=== PATIENT | female | born 1965 | race Caucasian/White ===

== ENCOUNTER 2016-08-20 09:04 | Emergency (ER) | payer MEDICAID ==
[2016-08-20] MEDS ORDERED: ASPIRIN 81 MG TABLET, CHEWABLE PO ONE (10:28)
--- NOTE | 2016-08-20 10:28 | ER Document Report ---
ED Cardiac - General Chief Complaint: Chest Pressure Stated Complaint: HEADACHE Mode of Arrival: Medic Information source: Patient Notes: This is a 51-year-old female who presents via EMS for chest pain and headache. She states that she had a tooth extracted yesterday morning. This morning she initially felt fine when she awoke but shortly after taking her prescribed antibiotic, she developed a gradual headache. He then took her dog for a walk at about 08 100 and when she returned home she laid down. She then developed substernal chest pressure and states that it felt like someone was sitting on her chest. This pressure radiated up into the left side of her neck. She also states that her right upper extremity felt tingly. She was nauseated but did not vomit. She states she was very diaphoretic. She had no radiation into her back. She also cannot recall if she felt short of breath at the time. At this point she called EMS. At this time she currently denies any chest pain or pressure, but she does state she still has some residual pressure in her neck and she still has a headache. This headache is similar to her prior headaches. She's had no recent illnesses and no fevers. TRAVEL OUTSIDE OF THE [place] IN LAST 30 DAYS: No - Related Data Allergies/Adverse Reactions: No Known Allergies Allergy (Unverified 03/27/16 13:34) Past Medical History - General Information source: Patient - Social History Smoking Status: Current Every Day Smoker Frequency of alcohol use: None Drug Abuse: None Family History: Other - mother, daughter, grandaughter history of stroke, Mom with [place] in her 60's - Past Medical History Cardiac Medical History: Reports: Other - tachycardia Pulmonary Medical History: Reports: None Neurological Medical History: Reports: Hx Migraine Endocrine Medical History: Reports: None GI Medical History: Reports: Hx Gastroesophageal Reflux Disease Psychiatric Medical History: Denies: Hx Depression Surgical Hx: Negative - Immunizations Hx Diphtheria, Pertussis, Tetanus Vaccination: Yes Review of Systems - Review of Systems Notes: REVIEW OF SYSTEMS: CONSTITUTIONAL : Denies fever, Denies recent illness. EENT: Denies eye, ear, throat, or mouth pain or symptoms. Denies nasal or sinus congestion. CARDIOVASCULAR: As per history of present illness RESPIRATORY: Denies cough, cold, or chest congestion. Denies shortness of breath, difficulty breathing, or wheezing. GASTROINTESTINAL: Denies abdominal pain. Denies vomiting. Nausea as per history of present illness GENITOURINARY: Denies difficulty urinating, painful urination, burning, frequency, or blood in urine. MUSCULOSKELETAL: Denies neck or back pain or joint pain or swelling. SKIN: Denies rash or skin lesions. HEMATOLOGIC : Denies easy bruising or bleeding. LYMPHATIC: Denies swollen, enlarged glands. NEUROLOGICAL: Denies altered mental status or loss of consciousness. Headache as per history of present illness PSYCHIATRIC: Denies anxiety or stress or depression. ALL OTHER SYSTEMS REVIEWED AND NEGATIVE. Physical Exam - Vital signs Vitals: Resp BP Pulse Ox 15 116/69 99 08/20/16 14:00 08/20/16 14:00 08/20/16 14:00 - Notes Notes: PHYSICAL EXAMINATION: GENERAL: Awake and alert, appears uncomfortable, well-nourished and in no acute distress. HEAD: Atraumatic, normocephalic. EYES: Pupils equal round and reactive to light, extraocular movements intact, sclera anicteric, conjunctiva are normal. ENT: nares patent, oropharynx clear without exudates. Moist mucous membranes. NECK: Normal range of motion, supple without lymphadenopathy LUNGS: Breath sounds clear to auscultation bilaterally and equal. No wheezes rales or rhonchi. HEART: Regular rate and rhythm without murmurs ABDOMEN: Soft, nontender, normoactive bowel sounds. No guarding, no rebound. No masses appreciated. EXTREMITIES: Normal range of motion, no pitting or edema. NEUROLOGICAL: Cranial nerves grossly intact. Normal speech. Normal sensory, motor, and reflex exams. PSYCH: Normal mood, normal affect. SKIN: Warm, Dry, normal turgor, no rashes or lesions noted. Course - Re-evaluation Re-evalutation: 08/20/16 11:30 This patient presents with concerning symptoms of chest pressure radiating into her neck. Her initial EKG is nondiagnostic and shows no ischemia. I will treat her with aspirin and we'll also treat her migraine headache. Cardiac enzymes are ordered and I anticipate that she will be admitted for chest pain observation and rule out, should her initial emergency workup be reassuring. 08/20/16 15:59 Patient is resting comfortably and her labs are reviewed. She has no current chest pain. She is agreeable for observation admission for chest pain rule out and stress test. Discussed also with her mother and their questions are answered. 08/20/16 18:13 - Vital Signs Vital signs: Temp Pulse Resp BP Pulse Ox 15 116/69 99 08/20/16 14:00 08/20/16 14:00 08/20/16 14:00 - Laboratory Result Diagrams: 08/20/16 12:15 08/20/16 14:27 Laboratory results interpreted by me: 08/20/16 12:15 WBC 13.3 H Seg Neutrophils % 85.0 H Lymphocytes % 11.3 L Monocytes % 2.9 L Absolute Neutrophils 11.3 H - Diagnostic Test Radiology reviewed: Reports reviewed - Chest x-ray negative - EKG Interpretation by Me Additional EKG results interpreted by me: 08/20/16 16:01 EKG at 0 910 reveals sinus rhythm with a rate of 68. She does have inverted T waves in V1 and V2 as well as flattened T waves in aVL. I see no ST elevation or depression. There are no prior EKGs for comparison. Discharge - Discharge Clinical Impression: Chest pain in adult, Cardiovascular risk factor, Tobacco abuse Condition: Good Disposition: ADMITTED OBSERVATION Admitting Provider: Hospitalist - Dr. Wharton Unit Admitted: Telemetry - Dio
[2016-08-20] MEDS ORDERED: METOCLOPRAMIDE HCL INJ/PF 10 MG/2 ML SDV IV ONE (10:29)
[2016-08-20] MEDS ORDERED: NORMAL SALINE 1000 ML 1,000 ML IV ONE (10:29)
[2016-08-20] MEDS ORDERED: DIPHENHYDRAMINE HCL 50 MG/ML VIAL IV ONE (10:29)
[2016-08-20 12:26] LABS: ABSOLUTE BASOPHILS # (AUTO) 0.1 10^3/uL (0.0-0.2); ABSOLUTE LYMPHOCYTES (AUTO) 1.5 10^3/uL (0.5-4.7); ABSOLUTE MONOCYTES (AUTO) 0.4 10^3/uL (0.1-1.4); ABSOLUTE NEUT (AUTO) 11.3 10^3/uL (1.7-8.2); BASOPHILS % (AUTO) 0.4 % (0-2); EOSINOPHILS % (AUTO) 0.4 % (0-6); HEMATOCRIT 38.1 % (36.0-47.0); HEMOGLOBIN 12.9 g/dL (12.0-15.5); HGB HCT DIFFERENCE 0.6; LYMPHOCYTES % (AUTO) 11.3 % (13-45); MEAN CORPUSCULAR HGB CONC 33.9 g/dL (32.0-36.0); MEAN CORPUSCULAR VOLUME 91 fl (80-97); MONOCYTES % (AUTO) 2.9 % (3-13); RED BLOOD COUNT 4.17 10^6/uL (3.72-5.28); RED CELL DISTRIBUTION WIDTH 12.7 % (11.5-14.0); WHITE BLOOD COUNT 13.3 10^3/uL (4.0-10.5)
--- NOTE | 2016-08-20 13:24 | EKG REPORT ---
SEVERITY:- BORDERLINE ECG - SINUS RHYTHM BORDERLINE T ABNORMALITIES, ANT-LAT LEADS : Confirmed by: Darren Varela MD 20-Aug-2016 13:23:39
[2016-08-20 14:55] LABS: ALANINE AMINOTRANSFERASE 28 U/L (9-52); ALBUMIN 3.7 g/dL (3.5-5.0); ALKALINE PHOSPHATASE 49 U/L (38-126); ANION GAP 9 (5-19); ASPARTATE AMINO TRANSFERASE 23 U/L (14-36); BILIRUBIN,TOTAL 0.6 mg/dL (0.2-1.3); BLOOD UREA NITROGEN 13 mg/dL (7-20); CALCIUM 9.1 mg/dL (8.4-10.2); CARBON DIOXIDE 27 mmol/L (22-30); CHLORIDE 106 mmol/L (98-107); CREATINE KINASE 70 U/L (30-135); CREATININE RESULT 0.71 mg/dL (0.52-1.25); GLUCOSE 85 mg/dL (75-110); POTASSIUM 4.3 mmol/L (3.6-5.0); SODIUM 141.9 mmol/L (137-145); TOTAL PROTEIN 6.7 g/dL (6.3-8.2)
[2016-08-20 15:06] LABS: CREATINE KINASE MB 0.28 ng/mL (<4.55)
[2016-08-20 15:07] LABS: TROPONIN I < 0.012 ng/mL
--- NOTE | 2016-08-20 17:40 | PDOC CONSULTATION ---
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 I was asked by emergency department provider to evaluate patient for chest pain. Patient clearly states that she did not present to the emergency department for chest pain but in fact presented with severe headache. She has history of migraine headaches and these have been increasing in frequency and intensity to the point that she is becoming debilitated missing work. She has never seen a neurologist for this. She was admitted to the hospitalist service in March of last year for complex migraine and had neuroimaging that was unremarkable at that time. She was discharged on Zoloft for anxiety that time that is currently taking no medications. Is also noted that she had a dental extraction of her left upper molar yesterday that she thought this was related to her headaches. She is currently taking antibiotics following dental extraction. With regard to the history of chest pain, patient states that she was having a severe headache that then radiated down her neck into her chest and body and made it difficult for her to use her arms. She did not have specific complaint of chest pain or shortness of breath. Past Medical History Cardiac Medical History: Reports: Other - tachycardia Pulmonary Medical History: Reports: None Neurological Medical History: Reports: Migraine Endocrine Medical History: Reports: None GI Medical History: Reports: Gastroesophageal Reflux Disease Psychiatric Medical History: Denies: Depression Social History Information Source: Patient Smoking Status: Current Every Day Smoker Frequency of Alcohol Use: None Hx Recreational Drug Use: No Drugs: None Hx Prescription Drug Abuse: No - Advance Directive Resuscitation Status: Full Code Family History Family History: CAD, CVA, Other - mother, daughter, grandaughter history of stroke, Mom with [place] in her 60's Parental Family History Reviewed: Yes Children Family History Reviewed: Yes Sibling(s) Family History Reviewed.: Yes Medication/Allergy Home Medications: Omeprazole Magnesium [Prilosec Otc] 20 mg PO BID 03/27/16 Butalb/Acetaminophen/Caffeine [Fioricet (50-325-40 mg) Tablet] 1 tab PO Q4HP PRN #30 each 08/20/16 Sertraline HCl [Zoloft 50 mg Tablet] 50 mg PO DAILY #30 tablet 08/20/16 Topiramate [Topamax] 50 mg PO QHS #60 tablet 08/20/16 Allergies/Adverse Reactions: No Known Allergies Allergy (Unverified 03/27/16 13:34) Review of Systems Constitutional: ABSENT: chills, fever(s), headache(s), weight gain, weight loss Eyes: ABSENT: visual disturbances Ears: ABSENT: hearing changes Nose, Mouth, and Throat: PRESENT: headache(s) Cardiovascular: PRESENT: chest pain. ABSENT: dyspnea on exertion, edema, orthropnea, palpitations Respiratory: ABSENT: cough, hemoptysis Gastrointestinal: ABSENT: abdominal pain, constipation, diarrhea, hematemesis, hematochezia, nausea, vomiting Genitourinary: ABSENT: dysuria, hematuria Musculoskeletal: ABSENT: joint swelling Integumentary: ABSENT: rash, wounds Neurological: PRESENT: lack of coordination. ABSENT: abnormal gait, abnormal speech, confusion, dizziness, focal weakness, syncope Psychiatric: ABSENT: anxiety, depression, homidical ideation, suicidal ideation Endocrine: ABSENT: cold intolerance, heat intolerance, polydipsia, polyuria Hematologic/Lymphatic: ABSENT: easy bleeding, easy bruising Physical Exam Vital Signs: Temp Pulse Resp BP Pulse Ox 15 116/69 99 08/20/16 14:00 08/20/16 14:00 08/20/16 14:00 PHYSICAL EXAM: GENERAL: Appears well, no acute distress HEENT: Normocephalic, no scleral icterus, conjunctiva clear, EOEM intact, PERRLA , moist mucous membranes NECK: trachea midline, no thyromegally RESPIRATORY: Clear to auscultation, no wheezes/rhonchi CARDIAC: Regular rate and rhythm, no murmur/chel/rub ABDOMEN: Soft, no distension, no tenderness, no guarding, normal bowel sounds, negative Roca sign RECTAL: deferred : deferred EXTREMITIES: No edema, cyanosis, clubbing MUSCULOSKELETAL: No joint swelling or deformity VASCULAR: normal peripheral pulses NEUROLOGIC: Alert, oriented to person/place/time, normal speech, cranial nerves grossly intact, 5/5 strength in all extremities, tactile sensation intact in all extremities SKIN: No rash, no wounds, no worrisome skin lesions PSYCHIATRIC: Normal mood, normal affect Results Laboratory Results: Labs- All tests 24 hr 08/20/16 08/20/1608/20/17 12:15 12:15 12:15 WBC 13.3 H RBC 4.17 Hgb 12.9 Hct 38.1 MCV 91 MCH 31.0 MCHC 33.9 RDW 12.7 Plt Count 215 Seg Neutrophils % 85.0 H Lymphocytes % 11.3 L Monocytes % 2.9 L Eosinophils % 0.4 Basophils % 0.4 Absolute Neutrophils 11.3 H Absolute Lymphocytes 1.5 Absolute Monocytes 0.4 Absolute Eosinophils 0.0 Absolute Basophils 0.1 Sodium Cancelled Potassium Cancelled Chloride Cancelled Carbon Dioxide Cancelled Anion Gap Cancelled BUN Cancelled Creatinine Cancelled Est GFR ( Amer) Cancelled Est GFR (Non-Af Amer) Cancelled Glucose Cancelled Calcium Cancelled Total Bilirubin Cancelled Direct Bilirubin Cancelled AST Cancelled ALT Cancelled Alkaline Phosphatase Cancelled Creatine Kinase Cancelled CK-MB (CK-2) Cancelled Troponin I Cancelled Total Protein Cancelled Albumin Cancelled 08/20/16 08/20/16 14:27 14:27 WBC RBC Hgb Hct MCV MCH MCHC RDW Plt Count Seg Neutrophils % Lymphocytes % Monocytes % Eosinophils % Basophils % Absolute Neutrophils Absolute Lymphocytes Absolute Monocytes Absolute Eosinophils Absolute Basophils Sodium 141.9 Potassium 4.3 Chloride 106 Carbon Dioxide 27 Anion Gap 9 BUN 13 Creatinine 0.71 Est GFR ( Amer) > 60 Est GFR (Non-Af Amer) > 60 Glucose 85 Calcium 9.1 Total Bilirubin 0.6 Direct Bilirubin 0.0 AST 23 ALT 28 Alkaline Phosphatase 49 Creatine Kinase 70 CK-MB (CK-2) 0.28 Troponin I < 0.012 Total Protein 6.7 Albumin 3.7 EKG Comments: Normal sinus rhythm Impressions: Chest X-Ray 08/20/16 09:15 IMPRESSION: NO ACUTE RADIOGRAPHIC FINDING IN THE CHEST. Assessment & Plan - Diagnosis (1) Migraine Is this a current diagnosis for this admission?: YesPlan: Patient has been having recurrent episodes of complex migraine headaches that have been increasing in frequency and intensity. I would like to start patient on Topamax 50 mg nightly 7 days, then increase to 50 mg twice daily. I will refer her to Dr. Og of neurology for further evaluation. I would like her to start back on Zoloft 50 mg daily for this as well as anxiety. (2) Acute anxiety Is this a current diagnosis for this admission?: YesPlan: I will prescribe patient Zoloft 50 mg daily. (3) GERD (gastroesophageal reflux disease) Is this a current diagnosis for this admission?: Yes (4) Tobacco abuse Is this a current diagnosis for this admission?: Yes - Time Time Spent: Greater than 70 Minutes Anticipated discharge: Home
[2016-08-20 19:12] VITALS: BP 112/64
== END 2016-08-20 19:21 | disposition home or self-care (01) ==
LOC: ER 09:04 → UNDOADMOB 16:51 → EH 16:51 → UNDODISOB 19:20 → EH 19:20
DX: R07.9 Chest pain, unspecified (principal); R51 Headache; F17.210 Nicotine dependence, cigarettes, uncomplicated
CPT/HCPCS: 93005; 99285; 96374; 96375; 36415; 82553; 82550; 85025; 80053; 84484; 71010; 93010; J1200; J2765

== ENCOUNTER 2017-04-04 12:33 | Emergency (ER) | payer SELFPAY ==
--- NOTE | 2017-04-04 13:02 | ER Document Report ---
ED Medical Screen (RME) - General Chief Complaint: Headache Stated Complaint: HEADACHES Time Seen by Provider: 04/04/17 12:53 Notes: This 51-year-old female patient comes emergency room with a plethora of complaints. She reports several months of headaches, 3 months of always tired and hungry with 20 pound weight loss despite eating very healthy. She complains of vision loss, headaches, dizziness, seeing spots, swollen eyes. Also multiple episodes of increased sweating, however this may be menopausal symptoms. When asked what caused her to come in today she stated she was finally well enough to come here. He also complained about having a large ball in her left anterior throat for 1-1 /2 years but it went down by taking apricot seeds. She states "I am always drinking water, even if my body tells me not to", she reports her dry mouth is due to keeping her mouth open to breathe because she cannot get enough air in any other way. 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 He has a quite capable and well-trained ear nose and throat surgeon. The patient has been admitted here in the past for possible TIA versus basilar migraine. TRAVEL OUTSIDE OF THE [place] IN LAST 30 DAYS: No - Related Data Allergies/Adverse Reactions: No Known Allergies Allergy (Verified 04/04/17 12:42) Past Medical History Neurological Medical History: Reports: Hx Migraine Renal/ Medical History: Denies: Hx Peritoneal Dialysis GI Medical History: Reports: Hx Gastroesophageal Reflux Disease Psychiatric Medical History: Denies: Hx Depression - Immunizations Hx Diphtheria, Pertussis, Tetanus Vaccination: Yes Physical Exam - Vital signs Vitals: Temp Pulse Resp BP Pulse Ox 97.4 F 80 16 133/82 H 98 04/04/17 12:40 04/04/17 12:40 04/04/17 12:40 04/04/17 12:40 04/04/17 12:40 Course - Vital Signs Vital signs: Temp Pulse Resp BP Pulse Ox 97.4 F 80 16 133/82 H 98 04/04/17 12:40 04/04/17 12:40 04/04/17 12:40 04/04/17 12:40 04/04/17 12:40
[2017-04-04 13:44] LABS: ABSOLUTE EOSINOPHILS # (AUTO) 0.1 10^3/uL (0.0-0.6); ABSOLUTE LYMPHOCYTES (AUTO) 1.7 10^3/uL (0.5-4.7); ABSOLUTE MONOCYTES (AUTO) 0.4 10^3/uL (0.1-1.4); ABSOLUTE NEUT (AUTO) 8.5 10^3/uL (1.7-8.2); APPEARANCE,URINE SLIGHTLY-CLOUDY; BASOPHILS % (AUTO) 0.4 % (0-2); BILIRUBIN,URINE NEGATIVE (NEGATIVE); EOSINOPHILS % (AUTO) 1.1 % (0-6); GLUCOSE, URINE NEGATIVE (NEGATIVE); HEMATOCRIT 36.7 % (36.0-47.0); HEMOGLOBIN 12.8 g/dL (12.0-15.5); HGB HCT DIFFERENCE 1.7; KETONES,URINE NEGATIVE (NEGATIVE); LEUKOCYTE ESTERASE,URINE SMALL (NEGATIVE); LYMPHOCYTES % (AUTO) 15.9 % (13-45); MEAN CORPUSCULAR VOLUME 91 fl (80-97); MONOCYTES % (AUTO) 3.9 % (3-13); NITRITE,URINE NEGATIVE (NEGATIVE); PROTEIN,URINE NEGATIVE (NEGATIVE); RED BLOOD COUNT 4.01 10^6/uL (3.72-5.28); RED CELL DISTRIBUTION WIDTH 13.3 % (11.5-14.0); SEGMENTED NEUTROPHILS % (AUTO) 78.7 % (42-78); URINE SPECIFIC GRAVITY 1.012; UROBILINOGEN,URINE NEGATIVE mg/dL (<2.0); WHITE BLOOD COUNT 10.8 10^3/uL (4.0-10.5)
[2017-04-04] MEDS ORDERED: DIPHENHYDRAMINE HCL 50 MG/ML VIAL IV ONE (13:48)
[2017-04-04] MEDS ORDERED: PROCHLORPERAZINE EDISYLATE INJ 10 MG/2 ML VIAL IV ONE (13:48)
[2017-04-04 14:06] LABS: ALANINE AMINOTRANSFERASE 25 U/L (9-52); ALBUMIN 4.4 g/dL (3.5-5.0); ALKALINE PHOSPHATASE 56 U/L (38-126); ANION GAP 10 (5-19); ASPARTATE AMINO TRANSFERASE 22 U/L (14-36); BILIRUBIN,DIRECT 0.4 mg/dL (0.0-0.4); BILIRUBIN,TOTAL 0.8 mg/dL (0.2-1.3); BLOOD UREA NITROGEN 12 mg/dL (7-20); CARBON DIOXIDE 28 mmol/L (22-30); CHLORIDE 104 mmol/L (98-107); CREATININE RESULT 0.62 mg/dL (0.52-1.25); GLUCOSE 94 mg/dL (75-110); MAGNESIUM 1.7 mg/dL (1.6-2.3); POTASSIUM 4.1 mmol/L (3.6-5.0); SODIUM 141.8 mmol/L (137-145); TOTAL PROTEIN 7.3 g/dL (6.3-8.2)
--- NOTE | 2017-04-04 14:31 | ER Document Report ---
ED General - General Chief Complaint: Headache Stated Complaint: HEADACHES Time Seen by Provider: 04/04/17 12:53 Mode of Arrival: Ambulatory Information source: Patient Notes: 51-year-old female presents with 1 year duration of intermittent headaches generalized complaints visual disturbances. Patient notes she has seen ENT ophthalmology with no improvement of symptoms. Patient denies any fevers or chills admits intermittent sweating episodes even though she feels cold. Patient admits to drinking lots of water TRAVEL OUTSIDE OF THE [place] IN LAST 30 DAYS: No - HPI Onset: Other Onset/Duration: Persistent Quality of pain: Achy Severity: Mild Pain Level: 1 Associated symptoms: Headache, Other Exacerbated by: Denies Relieved by: Denies Similar symptoms previously: Yes Recently seen / treated by doctor: Yes - Related Data Allergies/Adverse Reactions: codiene Allergy (Severe, Uncoded 04/04/17 13:05) Past Medical History - Social History Smoking Status: Current Every Day Smoker Cigarette use (# per day): Yes Chew tobacco use (# tins/day): No Smoking Education Provided: No Frequency of alcohol use: None Drug Abuse: None Family History: Reviewed & Not Pertinent, Other - mother, daughter, grandaughter history of stroke, Mom with [place] in her 60's Neurological Medical History: Reports: Hx Migraine Renal/ Medical History: Denies: Hx Peritoneal Dialysis GI Medical History: Reports: Hx Gastroesophageal Reflux Disease Psychiatric Medical History: Denies: Hx Depression - Immunizations Hx Diphtheria, Pertussis, Tetanus Vaccination: Yes Review of Systems - Review of Systems Notes: REVIEW OF SYSTEMS: CONSTITUTIONAL : Denies fever, chills, or sweats. Denies recent illness. EENT: Admits to visual disturbance CARDIOVASCULAR: Denies chest pain. Denies palpitations or racing or irregular heart beat. Denies ankle edema. RESPIRATORY: Denies cough, cold, or chest congestion. Denies shortness of breath, difficulty breathing, or wheezing. GASTROINTESTINAL: Denies abdominal pain or distention. Denies nausea, vomiting , or diarrhea. Denies blood in vomitus, stools, or per rectum. Denies black, tarry stools. Denies constipation. GENITOURINARY: Denies difficulty urinating, painful urination, burning, frequency, blood in urine, or discharge. FEMALE GENITOURINARY: Denies vaginal bleeding, heavy or abnormal periods, irregular periods. Denies vaginal discharge or odor. MUSCULOSKELETAL: Denies back or neck pain or stiffness. Denies joint pain or swelling. SKIN: Denies rash, lesions or sores. HEMATOLOGIC : Denies easy bruising or bleeding. LYMPHATIC: Denies swollen, enlarged glands. NEUROLOGICAL: Admits to headaches admits to visual disturbances PSYCHIATRIC: Denies anxiety or stress. Denies depression, suicidal ideation, or homicidal ideation. ALL OTHER SYSTEMS REVIEWED AND NEGATIVE. PHYSICAL EXAMINATION: GENERAL: Well-appearing, well-nourished and in no acute distress. HEAD: Atraumatic, normocephalic. EYES: Pupils equal round and reactive to light, extraocular movements intact, conjunctiva are normal. ENT: Nares patent, oropharynx clear without exudates. Moist mucous membranes. NECK: Normal range of motion, supple without lymphadenopathy LUNGS: Breath sounds clear to auscultation bilaterally and equal. No wheezes rales or rhonchi. HEART: Regular rate and rhythm without murmurs ABDOMEN: Soft, nontender, nondistended abdomen. No guarding, no rebound. No masses appreciated. Female : deferred Musculoskeletal: Normal range of motion, no pitting or edema. No cyanosis. NEUROLOGICAL: Cranial nerves grossly intact. Normal speech, normal gait. Normal sensory, motor exams PSYCH: Crying tearful SKIN: Warm, Dry, normal turgor, no rashes or lesions noted. Dictation was performed using [employer] voice recognition software Physical Exam - Vital signs Vitals: Temp Pulse Resp BP Pulse Ox 97.4 F 80 16 133/82 H 98 04/04/17 12:40 04/04/17 12:40 04/04/17 12:40 04/04/17 12:40 04/04/17 12:40 Course - Re-evaluation Re-evalutation: 04/04/17 14:30 Patient presents with very vague complaints. I have very low suspicion for any life-threatening issues given his ongoing now for a year and started when her menopause started. Lab work noted no significant abnormality patient looks well is in no distress 04/04/17 14:45 Patient's lab work was completely negative, I gave these reports to her, she states she feels much better knowing these results. I will discharge her home to follow-up with her primary care physician is I am not seeing any life- threatening issues at this time requiring further intervention After performing a Medical Screening Examination, I estimate there is LOW risk for RUPTURED ESOPHAGUS, PNEUMOTHORAX, PULMONARY EMBOLISM, ACUTE CORONARY SYNDROME, OR THORACIC AORTIC DISSECTION, thus I consider the discharge disposition reasonable. I have reevaluated this patient multiple times and no significant life threatening changes are noted. The patient and I have discussed the diagnosis and risks, and we agree with discharging home with close follow-up. We also discussed returning to the Emergency Department immediately if new or worsening symptoms occur. We have discussed the symptoms which are most concerning (e.g., bloody sputum, worsening pain or shortness of breath) that necessitate immediate return. - Vital Signs Vital signs: Temp Pulse Resp BP Pulse Ox 97.4 F 80 16 133/82 H 98 04/04/17 12:40 04/04/17 12:40 04/04/17 12:40 04/04/17 12:40 04/04/17 12:40 - Laboratory Result Diagrams: 04/04/17 13:15 04/04/17 13:15 Laboratory results interpreted by me: 04/04/17 04/04/17 13:15 13:15 WBC 10.8 H Seg Neutrophils % 78.7 H Absolute Neutrophils 8.5 H Urine Blood SMALL H Ur Leukocyte Esterase SMALL H Discharge - Discharge Clinical Impression: Body aches Headache Qualifiers: Headache type: unspecified Headache chronicity pattern: chronic headache Intractability: not intractable Qualified Code(s): R51 - Headache Condition: Stable Disposition: HOME, SELF-CARE Additional Instructions: Follow up with your physician tomorrow for further care or return to the ED IMMEDIATELY if symptoms worsen or new concerns occur. If you cannot afford to follow up with your primary care physician a list of low cost clinics have been provided at the end of your discharge papers as well.
[2017-04-04 14:59] VITALS: BP 108/67
== END 2017-04-04 14:55 | disposition home or self-care (01) ==
LOC: ER 12:33
DX: R51 Headache (principal); H53.9 Unspecified visual disturbance; R61 Generalized hyperhidrosis; Z88.5 Allergy status to narcotic agent; F17.210 Nicotine dependence, cigarettes, uncomplicated; Z86.69 Personal history of other diseases of the nervous system and sense organs; Z82.3 Family history of stroke; Z82.49 Family history of ischemic heart disease and other diseases of the circulatory system
CPT/HCPCS: 36415; 80053; 81001; 83735; 84443; 85025; 99283

== ENCOUNTER 2017-08-04 16:06 | Emergency (ER) | payer SELFPAY ==
--- NOTE | 2017-08-04 17:29 | ER Document Report ---
ED Medical Screen (RME) - General Chief Complaint: Weakness Stated Complaint: DIZZY, BLURRED VISION, NECK TIGHTNESS Time Seen by Provider: 08/04/17 17:25 Notes: pt states she has "lumps" on face/neck/chest and lost her voice for 10 days and throat feels like it is closing and she has seen multiple docs for this and tried various treatments but with no relief TRAVEL OUTSIDE OF THE [place] IN LAST 30 DAYS: No - Related Data Allergies/Adverse Reactions: codiene Allergy (Severe, Uncoded 08/04/17 17:19) Past Medical History - Social History Chew tobacco use (# tins/day): No Frequency of alcohol use: None Drug Abuse: None Neurological Medical History: Reports: Hx Migraine Renal/ Medical History: Denies: Hx Peritoneal Dialysis GI Medical History: Reports: Hx Gastroesophageal Reflux Disease Psychiatric Medical History: Denies: Hx Depression - Immunizations Hx Diphtheria, Pertussis, Tetanus Vaccination: Yes Physical Exam - Vital signs Vitals: Temp Pulse Resp BP Pulse Ox 98.3 F 86 18 132/76 H 96 08/04/17 16:20 08/04/17 16:20 08/04/17 16:20 08/04/17 16:20 08/04/17 16:20 Course - Vital Signs Vital signs: Temp Pulse Resp BP Pulse Ox 98.3 F 86 18 132/76 H 96 08/04/17 16:20 08/04/17 16:20 08/04/17 16:20 08/04/17 16:20 08/04/17 16:20
[2017-08-04 18:23] LABS: ABSOLUTE BASOPHILS # (AUTO) 0.1 10^3/uL (0.0-0.2); ABSOLUTE EOSINOPHILS # (AUTO) 0.2 10^3/uL (0.0-0.6); ABSOLUTE LYMPHOCYTES (AUTO) 2.6 10^3/uL (0.5-4.7); ABSOLUTE MONOCYTES (AUTO) 0.5 10^3/uL (0.1-1.4); ABSOLUTE NEUT (AUTO) 6.1 10^3/uL (1.7-8.2); BASOPHILS % (AUTO) 0.6 % (0-2); EOSINOPHILS % (AUTO) 2.5 % (0-6); HEMATOCRIT 41.8 % (36.0-47.0); HEMOGLOBIN 14.3 g/dL (12.0-15.5); LYMPHOCYTES % (AUTO) 27.3 % (13-45); MEAN CORPUSCULAR HEMOGLOBIN 31.1 pg (27.0-33.4); MEAN CORPUSCULAR HGB CONC 34.2 g/dL (32.0-36.0); MEAN CORPUSCULAR VOLUME 91 fl (80-97); MONOCYTES % (AUTO) 5.3 % (3-13); PLATELET COUNT 269 10^3/uL (150-450); RED BLOOD COUNT 4.59 10^6/uL (3.72-5.28); RED CELL DISTRIBUTION WIDTH 12.8 % (11.5-14.0); SEGMENTED NEUTROPHILS % (AUTO) 64.3 % (42-78); TOTAL CELLS COUNTED % (AUTO) 100 %; WHITE BLOOD COUNT 9.5 10^3/uL (4.0-10.5)
--- NOTE | 2017-08-04 18:38 | RADIOLOGY REPORT (SQ) ---
EXAM DESCRIPTION: SOFT TISSUE NECK COMPLETED DATE/TIME: 08/04/2017 6:22 pm REASON FOR STUDY: neck pain COMPARISON: None. NUMBER OF VIEWS: Two views. TECHNIQUE: AP and lateral radiographic image of the soft tissues of the neck. LIMITATIONS: None. FINDINGS: EPIGLOTTIS: Normal. Contour normal. Aryepiglottic folds normal. PREVERTEBRAL SOFT TISSUES: Normal. No soft tissue swelling. SUBGLOTTIC AREA: Normal. No narrowing. RETROPHARYNGEAL SPACE: Normal. No soft tissue masses. BONES: No significant findings. LUNG APICES: Normal. OTHER: No radiopaque foreign body. No other significant finding. IMPRESSION: NEGATIVE STUDY OF THE SOFT TISSUES OF THE NECK. TECHNICAL DOCUMENTATION: JOB ID: [id number] [employer]- All Rights Reserved
[2017-08-04 18:39] LABS: ALANINE AMINOTRANSFERASE 27 U/L (9-52); ALBUMIN 4.8 g/dL (3.5-5.0); ALKALINE PHOSPHATASE 54 U/L (38-126); ANION GAP 10 (5-19); ASPARTATE AMINO TRANSFERASE 24 U/L (14-36); BILIRUBIN,DIRECT 0.2 mg/dL (0.0-0.4); BILIRUBIN,TOTAL 0.4 mg/dL (0.2-1.3); BLOOD UREA NITROGEN 14 mg/dL (7-20); CALCIUM 10.4 mg/dL (8.4-10.2); CARBON DIOXIDE 31 mmol/L (22-30); CHLORIDE 101 mmol/L (98-107); GLUCOSE 96 mg/dL (75-110); POTASSIUM 4.6 mmol/L (3.6-5.0); SODIUM 141.7 mmol/L (137-145); TOTAL PROTEIN 7.8 g/dL (6.3-8.2)
--- NOTE | 2017-08-04 22:52 | ER Document Report ---
ED General - General Chief Complaint: Weakness Stated Complaint: DIZZY, BLURRED VISION, NECK TIGHTNESS Time Seen by Provider: 08/04/17 17:25 Notes: Patient is a 52-year-old female who presents with multiple complaints. Her primary concern is that for the past 1 year she has had loss of voice, intermittent odynophagia and dysphasia as well as concerns about neck swelling. She notes a intermittent, aching, throbbing pain to her neck. She has been evaluated by an ear nose and throat physician without resolution of her symptoms. Nothing improves or worsens her symptoms. She denies any fever or constitutional symptoms. She has not had any weight loss. No difficulty breathing. Her main concern is her loss of voice. She also complains of blurred vision and she has but denies this complaint to me. She denies any chest pain, headache, focal weakness, loss of sensation, or altered mental status. TRAVEL OUTSIDE OF THE [place] IN LAST 30 DAYS: No - Related Data Allergies/Adverse Reactions: vinayiene Allergy (Severe, Uncoded 08/04/17 17:19) Past Medical History - General Information source: Patient - Social History Smoking Status: Former Smoker Chew tobacco use (# tins/day): No Frequency of alcohol use: None Drug Abuse: None Family History: Reviewed & Not Pertinent, Other - mother, daughter, grandaughter history of stroke, Mom with AZ in her 60's Patient has suicidal ideation: No Patient has homicidal ideation: No Neurological Medical History: Reports: Hx Migraine Renal/ Medical History: Denies: Hx Peritoneal Dialysis GI Medical History: Reports: Hx Gastroesophageal Reflux Disease Psychiatric Medical History: Denies: Hx Depression - Immunizations Hx Diphtheria, Pertussis, Tetanus Vaccination: Yes Review of Systems - Review of Systems Notes: Constitutional: Negative for fever. HENT: Positive for neck pain, loss of voice and difficulty swallowing Eyes: Negative for visual changes. Cardiovascular: Negative for chest pain. Respiratory: Negative for shortness of breath. Gastrointestinal: Negative for abdominal pain, vomiting or diarrhea. Genitourinary: Negative for dysuria. Musculoskeletal: Negative for back pain. Skin: Negative for rash. Neurological: Negative for headaches, weakness or numbness. 10 point ROS negative except as marked above and in HPI. Physical Exam - Vital signs Vitals: Temp Pulse Resp BP Pulse Ox 98.3 F 86 18 132/76 H 96 08/04/17 16:20 08/04/17 16:20 08/04/17 16:20 08/04/17 16:20 08/04/17 16:20 Interpretation: Normal Notes: PHYSICAL EXAMINATION: GENERAL: Well-appearing, well-nourished and in no acute distress. HEAD: Atraumatic, normocephalic. EYES: Pupils equal round and reactive to light, extraocular movements intact, sclera anicteric, conjunctiva are normal. ENT: nares patent, oropharynx clear without exudates. Moist mucous membranes. NECK: Normal range of motion, supple without lymphadenopathy LUNGS: Breath sounds clear to auscultation bilaterally and equal. No wheezes rales or rhonchi. HEART: Regular rate and rhythm without murmurs ABDOMEN: Soft, nontender, normoactive bowel sounds. No guarding, no rebound. No masses appreciated. EXTREMITIES: Normal range of motion, no pitting or edema. No cyanosis. NEUROLOGICAL: No focal neurological deficits. Moves all extremities spontaneously and on command. PSYCH: Normal mood, normal affect. SKIN: Warm, Dry, normal turgor, no rashes or lesions noted. Course - Re-evaluation Re-evalutation: 08/04/17 22:38 Patient presents with multiple vague complaints that did not appear to be concerning for any acute life-threatening pathology. History appears most consistent with either esophageal dysmotility or partial vocal cord paralysis. I have encouraged the patient to follow-up with an research assoc for further evaluation as well as a possible endoscopy. Vitals are within normal limits at triage and at time of discharge. Physical examination is unremarkable. Patient has tolerated oral intake without difficulty. Patient was not noted to be in distress at any point during their ER visit. At this time, based on the reassuring evaluation, I do not suspect an acute AZ, pulmonary embolus, aortic dissection, acute intra-abdominal pathology, stroke, or sepsis.Will discharge with return precautions and follow-up recommendations. Verbal discharge instructions given a the bedside and opportunity for questions given. Medication warnings reviewed. Patient is in agreement with this plan and has verbalized understanding of return precautions and the need for primary care follow-up in the next 24-72 hours. - Vital Signs Vital signs: Temp Pulse Resp BP Pulse Ox 98.3 F 76 18 110/83 98 08/04/17 23:30 08/04/17 23:30 08/04/17 23:30 08/04/17 23:30 08/04/17 23:30 - Laboratory Result Diagrams: 08/04/17 18:06 08/04/17 18:06 Laboratory results interpreted by me: 08/04/17 18:06 Carbon Dioxide 31 H Calcium 10.4 H - Diagnostic Test Radiology reviewed: Reports reviewed Discharge - Discharge Clinical Impression: Odynophagia, Dysphasia, Loss of voice Condition: Good Disposition: HOME, SELF-CARE Additional Instructions: Your symptoms are most consistent with either an esophageal dysmotility issue ( your esophagus does not move fluids and food through like it should) versus a possible vocal cord paralysis. I think you need to follow-up with an ear nose and throat physician and have a scope of her vocal cords and possible a GI specialist having an endoscopy performed to evaluate your esophagus. Consider following up either [facility], Arlen Prado. Return for any additional concerns you have including worsening of your symptoms, difficulty breathing, inability to swallow, or any other symptoms that are worrisome to you.
[2017-08-04 23:41] VITALS: BP 110/83
== END 2017-08-04 23:30 | disposition home or self-care (01) ==
LOC: ER 16:06
DX: R13.10 Dysphagia, unspecified (principal); R47.02 Dysphasia; R49.1 Aphonia; R53.1 Weakness; R42 Dizziness and giddiness; H53.8 Other visual disturbances; Z88.6 Allergy status to analgesic agent; Z87.891 Personal history of nicotine dependence
CPT/HCPCS: 36415; 70360; 80053; 85025; 99285

== ENCOUNTER → 2017-08-08 | Outpatient (CLI) | payer SELFPAY ==
--- NOTE | 2017-08-08 16:20 | RADIOLOGY REPORT (SQ) ---
EXAM DESCRIPTION: MRI ORBIT/FACIAL/NECK COMBO COMPLETED DATE/TIME: 08/08/2017 3:44 pm REASON FOR STUDY: NECK PAIN COMPARISON: None. TECHNIQUE: Multiplanar multisequence imaging of the soft tissues of the neck performed without and w ith contrast. All images stored on PACS. CONTRAST TYPE AND DOSE: 15 mL Multihance. RENAL FUNCTION: GFR > 60. LIMITATIONS: None. FINDINGS: SKULL BASE: Intact. MAJOR SALIVARY GLANDS: No solid or cystic masses. No inflammatory changes. LYMPHADENOPATHY: No adenopathy. MUCOSAL MASSES OR ASYMMETRY: No mucosal masses or asymmetry. LARYNX/CORDS: No abnormal findings. VASCULAR STRUCTURES: The major vessels are patent. LUNG APICES: Clear. BONES: Intact. THYROID: Normal size. No masses. PARANASAL SINUSES: Clear. OTHER: No other significant finding. IMPRESSION: NO SIGNIFICANT FINDING IN THE SOFT TISSUES OF THE NECK. NO SOFT TISSUE MASSES OR ABNORM AL ENHANCEMENT. NO ADENOPATHY. TECHNICAL DOCUMENTATION: JOB ID: [id number] [id number]- All Rights Reserved
== END ==
LOC: RAD 13:44
PROVIDERS: ATTEND Pediatrics
DX: M54.2 Cervicalgia (principal)
CPT/HCPCS: 70543; A9577